=== PATIENT | male | born 1970 | race Caucasian/White ===

== ENCOUNTER 2021-04-30 18:59 | Emergency (ER) | payer OTHER | END 2021-04-30 22:35 | disposition other institution (70) | LOC: FER 18:59 | DX: T22.311A Burn of third degree of right forearm, initial encounter (principal); T25.332A Burn of third degree of left toe(s) (nail), initial encounter; T20.10XA Burn of first degree of head, face, and neck, unspecified site, initial encounter; Z23 Encounter for immunization; X10.2XXA Contact with fats and cooking oils, initial encounter | CPT/HCPCS: 90471; 90715; J1170; J2550; J7030 ==